=== PATIENT | female | born 1965 | race Caucasian/White ===

== ENCOUNTER 2021-05-26 17:06 | Observation (INO) | payer OTHER ==
[~2021-05-26] VITALS: Ht 165.1 cm; Wt 90.7 kg
--- NOTE | ~2021-05-26 | EKG ---
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
--- NOTE | ~2021-05-26 | EKG ---
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
[~2021-05-26 17:06] MED LIST: HYDROCODONE-APA1 TA1 PO; NOHOMEMEDICATIONS; PRILOSEC20 MG PO
[2021-05-26 17:08] VITALS: BP 154/96
[2021-05-26] MEDS ORDERED: BENICAR 5 MG5 M1 PO (17:14)
[2021-05-26] MEDS ORDERED: METFORMIN HCL500 M3 PO (17:14)
[2021-05-26] MEDS ORDERED: LEVO-T25 MCG PO ×2 (17:14)
[2021-05-26] MEDS ORDERED: LIPITOR10 MG PO (17:15)
[2021-05-26 18:49] LABS: ABSOLUTE EOSINOPHILS 0.1 thou/uL (0.0-0.7); ABSOLUTE LYMPHOCYTES 1.6 thou/uL (0.8-5.3); ABSOLUTE MONOCYTES 0.5 thou/uL (0.0-1.2); ABSOLUTE NEUTROPHILS 4.3 thou/uL (1.6-8.1); BASOPHILS 0.6 %; EOSINOPHILS 1.2 %; HEMATOCRIT 37.6 % (37.0-47.0); HEMOGLOBIN 12.6 gm/dL (12.0-15.0); LYMPHOCYTES 24.5 %; MCH 26.8 pg (26.0-34.0); MCHC 33.6 g/dL (28.0-37.0); MCV 79.8 fL (80.0-100.0); MONOCYTES 8.3 %; MPV 9.6 fl. (7.2-11.1); NUCLEATED RBCS 0 /100WBC; PLATELET COUNT* 174 thou/uL (150-400); POLYS 65.4 %; RBC 4.71 mil/uL (4.20-5.00); RDW-CV 14.4 % (10.5-14.5); WBC 6.5 thou/uL (4.0-11.0)
[2021-05-26 18:57] LABS: CALCIUM 9.7 mg/dL (8.5-10.1); CREATININE 1.2 mg/dL (0.6-1.3); POTASSIUM 4.3 mmol/L (3.5-5.1)
--- NOTE | 2021-05-26 19:01 | NUR ---
RECIEVED REPORT AND ASSUMED CARE OF PT.
[2021-05-26 19:07] LABS: MAGNESIUM 2.1 mg/dL (1.8-2.4); TOTAL BILIRUBIN 0.9 mg/dL (<0.1-1.0); TOTAL PROTEIN 8.1 g/dL (6.4-8.2)
[2021-05-26 19:12] LABS: URINE BILIRUBIN NEGATIVE (Negative); URINE BLOOD NEGATIVE (Negative); URINE CLARITY CLEAR; URINE COLOR YELLOW; URINE GLUCOSE-RANDOM NEGATIVE (Negative); URINE KETONES NEGATIVE (Negative); URINE LEUKOCYTES-REFLEX NEGATIVE (Negative); URINE NITRITE-REFLEX NEGATIVE (Negative); URINE PROTEIN NEGATIVE (Negative); URINE UROBILINOGEN 0.2 E.U./dl (0.2-1.0)
[2021-05-26 19:31] VITALS: BP 150/80
--- NOTE | 2021-05-26 22:57 | NUR ---
PT REPORTED THAT PAIN WAS THE SAME TOLERABLE, REPORTED THAT THE WEAKNESS "WHICH IS WHY I CAME IS GONE"; PT REPORTED THAT SHE WOULD BE MORE COMFORTABLE AT HOME AND FELT SHE DID NOT NEED TO STAY HERE; PT VERBALIZED AN UNDERSTANDING
== END 2021-05-26 23:00 | disposition left against medical advice (07) ==
LOC: M.ERS 17:06 → M.TBA-ER 19:31
PROVIDERS: Nurse Practitioner Family; ADMIT Internal Medicine; ATTEND Internal Medicine
DX: R07.2 Precordial pain (principal); R74.8 Abnormal levels of other serum enzymes; I10 Essential (primary) hypertension; E11.9 Type 2 diabetes mellitus without complications; E78.00 Pure hypercholesterolemia, unspecified; E66.9 Obesity, unspecified; Z68.33 Body mass index [BMI] 33.0-33.9, adult; Z79.84 Long term (current) use of oral hypoglycemic drugs; Z79.899 Other long term (current) drug therapy; Z88.2 Allergy status to sulfonamides